=== PATIENT | male | born 1995 | race Two or more races ===

== ENCOUNTER 2017-11-01 10:07 | Day surgery (SDC) | payer OTHER ==
[~2017-11-01 10:07] MED LIST: LACTATED RINGERS 1000 ML IV PRN; LIDOCAINE 0.5% INJ-PF (5 MG/ML) 50 ML SDV SUBCUT PRN
[2017-11-01] MEDS ORDERED: ONDANSETRON HCL INJ/PF 4 MG/2 ML SDV ONE (12:15)
[2017-11-01] MEDS ORDERED: PROPOFOL INJ 200 MG/20 ML VIAL IV ONE (12:15)
[2017-11-01] MEDS ORDERED: FENTANYL CITRATE INJ/PF 100 MCG/2 ML AMPUL ONE ×2 (12:15)
[2017-11-01] MEDS ORDERED: MIDAZOLAM 2 MG/2 ML INJ ONE (12:15)
[2017-11-01] MEDS ORDERED: LIDOCAINE 1% INJ-PF (10 MG/ML) 30 ML SDV ONE (12:32)
[2017-11-01] MEDS ORDERED: DIPHENHYDRAMINE HCL 50 MG/ML VIAL IV PRN (12:40)
[2017-11-01] MEDS ORDERED: OXYCODONE-ACETAMINOPHEN 5-325 MG TABLET PO PRN ×2 (12:40)
[2017-11-01] MEDS ORDERED: PROMETHAZINE HCL INJ 25 MG/1 ML VIAL IV PRN ×2 (12:40)
[2017-11-01] MEDS ORDERED: FENTANYL CITRATE INJ/PF 100 MCG/2 ML AMPUL IV PRN ×3 (12:40)
[2017-11-01] MEDS ORDERED: MEPERIDINE HCL/PF INJ 25 MG/1 ML DISP.SYRIN IV PRN (12:40)
[2017-11-01] MEDS ORDERED: MORPHINE SULFATE 10 MG/ML INJ IV PRN (12:40)
--- NOTE | 2017-11-01 13:00 | Operative Report ---
Operative Report DATE OF SURGERY: 11/02/79 Operative Report: penile cyst PREOPERATIVE DIAGNOSIS: Penile cyst or fibroma for removal POSTOPERATIVE DIAGNOSIS: Same OPERATION: Excision of penile fibroma SURGEON: MACK ANTUNEZ ANESTHESIA: Moderate Sedation TISSUE REMOVED OR ALTERED: Fibroma COMPLICATIONS: None ESTIMATED BLOOD LOSS: 0 PROCEDURE: The patient in the supine position after the induction of sedation the whole area prepped and scrubbed then an incision was done along the circumferential circumcision over the fibroma. This was deepened through subcutaneous tissue and then the fibroma was identified it was cleared from all the tissues around it and it was removed in total. The small bleeders were cauterized. The wound was inspected there was no residual fibroma or any residual of this tumor. After that 3-0 chromic was used to close the skin with interrupted sutures before the procedure 1% lidocaine was injected as local anesthesia. After that dressing was applied bacitracin applied patient tolerated procedure well and left the OR in good condition thank you
[2017-11-01 14:48] VITALS: BP 103/62
--- NOTE | 2017-11-03 10:59 | PDOC PROGRESS REPORT ---
Subjective Progress Note for:: 11/01/17 Reason For Visit: N48.89 OTHER SPECIFIED DISORDERS OF PENIS Physical Exam Vital Signs: Temp Pulse Resp BP Pulse Ox 97.4 F 61 16 103/62 100 11/01/17 14:25 11/01/17 14:25 11/01/17 14:25 11/01/17 14:25 11/01/17 14:25 Intake & Output 11/02/17 11/03/17 11/04/17 06:59 06:59 06:59 Intake Total 1350 Output Total 0 Balance 1350 Weight 60.78 kg Assessment & Plan - Plan Summary Plan Summary: post surgery, all is well wound clean, can go home
--- NOTE | 2017-11-04 09:28 | PDOC DISCHARGE SUMMARY ---
General - Admit/Disc Date/PCP Admission Date/Primary Care Provider: 11/01/17 Discharge Date: 11/01/17 - Discharge Diagnosis (1) Penile lesion Is this a current diagnosis for this admission?: Yes - Additional Information Discharge Diet: As Tolerated Discharge Activity: Activity As Tolerated Home Medications: No Home Medications 10/31/17 History of Present Illness Patient complains of: lesion present long time causes pain on intercourse History of Present Illness: KEELEY ODELL is a 22 year old male Hospital Course Hospital Course: unevenful Physical Exam Vital Signs: Temp Pulse Resp BP Pulse Ox 97.4 F 61 16 103/62 100 11/01/17 14:25 11/01/17 14:25 11/01/17 14:25 11/01/17 14:25 11/01/17 14:25 Results Laboratory Results: normal Impressions: penile lesion excised Status: Imported from PACS - normal Qualifiers - * PATIENT BEING DISCHARGED WITH ANY OF THE FOLLOWING DIAGNOSIS: No, Stroke, Heart Failure, [place], Asthma (Pediatric), VTE (PE or DVT) VTE patient discharged on overlapping Therapy?: No Reason(s) for not prescribing Overlap Therapy:: Tx not tolerated, Medical Contraindication, Drug intolerance, Adverse reaction to drug, Drug declined by patient, Procedure Contraindicated, Drug Resistance, Compl of medication care, Not indicated, Contraindicated, Drug allergy, Propensity to reaction, Procedure not indicated, Comfort Measure, Hospice Care Stroke Pt being discharged on Anti-thrombolytic therapy?: No Reason(s) for not prescribing Anti-thrombolytic therapy:: Tx not tolerated, Medical Contraindication, Drug intolerance, Adverse reaction to drug, Drug declined by patient, Procedure Contraindicated, Drug Resistance, Compl of medication care, Not indicated, Contraindicated, Drug allergy, Propensity to reaction, Procedure not indicated, Comfort Measure, Hospice Care Stroke Pt being discharged on Anti-coagulation therapy?: No Reason(s) for not prescribing Anti-coagulation therapy:: Tx not tolerated, Medical Contraindication, Drug intolerance, Adverse reaction to drug, Drug declined by patient, Procedure Contraindicated, Drug Resistance, Compl of medication care, Not indicated, Contraindicated, Drug allergy, Propensity to reaction, Procedure not indicated, Comfort Measure, Hospice Care Stroke Pt being discharged on Statins?: No Reason(s) for not prescribing Statins therapy:: Tx not tolerated, Medical Contraindication, Drug intolerance, Adverse reaction to drug, Drug declined by patient, Procedure Contraindicated, Drug Resistance, Compl of medication care, Not indicated, Contraindicated, Drug allergy, Propensity to reaction, Procedure not indicated, Comfort Measure, Hospice Care [place] Pt being discharged on Aspirin therapy?: No Reason(s) for not prescribing Aspirin therapy:: Tx not tolerated, Medical Contraindication, Drug intolerance, Adverse reaction to drug, Drug declined by patient, Procedure Contraindicated, Drug Resistance, Compl of medication care, Not indicated, Contraindicated, Drug allergy, Propensity to reaction, Procedure not indicated, Comfort Measure, Hospice Care [place] Pt being discharged on Statins?: No Reason(s) for not prescribing Statin therapy:: Tx not tolerated, Medical Contraindication, Drug intolerance, Adverse reaction to drug, Drug declined by patient, Procedure Contraindicated, Drug Resistance, Compl of medication care, Not indicated, Contraindicated, Drug allergy, Propensity to reaction, Procedure not indicated, Comfort Measure, Hospice Care [place] Pt discharged ACEI/ARBS?: No Reason(s) for not prescribing ACEI/ARBS:: Tx not tolerated, Medical Contraindication, Drug intolerance, Adverse reaction to drug, Drug declined by patient, Procedure Contraindicated, Drug Resistance, Compl of medication care, Not indicated, Contraindicated, Drug allergy, Propensity to reaction, Procedure not indicated, Comfort Measure, Hospice Care [place] Pt being discharged on ACEI for LVEF less than 40%?: No Reason(s) for not prescribing ACEI:: Tx not tolerated, Medical Contraindication , Drug intolerance, Adverse reaction to drug, Drug declined by patient, Procedure Contraindicated, Drug Resistance, Compl of medication care, Not indicated, Contraindicated, Drug allergy, Propensity to reaction, Procedure not indicated, Comfort Measure, Hospice Care HF Pt being discharged on ARBS for LVEF less than 40%?: No Reason(s) for not prescribing ARBS:: Tx not tolerated, Medical Contraindication , Drug intolerance, Adverse reaction to drug, Drug declined by patient, Procedure Contraindicated, Drug Resistance, Compl of medication care, Not indicated, Contraindicated, Drug allergy, Propensity to reaction, Procedure not indicated, Comfort Measure, Hospice Care HF Pt with Afib discharged with Warfarin?: No Reason(s) for not prescribing Warfarin:: Tx not tolerated, Medical Contraindication, Drug intolerance, Adverse reaction to drug, Drug declined by patient, Procedure Contraindicated, Drug Resistance, Compl of medication care, Not indicated, Contraindicated, Drug allergy, Propensity to reaction, Procedure not indicated, Comfort Measure, Hospice Care HF Pt discharged on evidence-based Beta [place]:: No Reason(s) for not prescribing evidence-based Beta [place]:: Tx not tolerated, Medical Contraindication, Drug intolerance, Adverse reaction to drug, Drug declined by patient, Procedure Contraindicated, Drug Resistance, Compl of medication care, Not indicated, Contraindicated, Drug allergy, Propensity to reaction, Procedure not indicated, Comfort Measure, Hospice Care Plan Discharge Plan: to urology clinic next week
== END 2017-11-01 14:25 | disposition home or self-care (01) ==
LOC: OROUT 10:07 → EDBD 12:00 → OROUT 14:25
PROVIDERS: ATTEND Urology
DX: N48.89 Other specified disorders of penis (principal)
CPT/HCPCS: 88304 ×2; J2250; J3010; J3490; J2405; J2704; 920